=== PATIENT | male | born 1945 | race Caucasian/White ===

== ENCOUNTER 2021-01-04 16:59 | Inpatient (IN) | payer MEDICARE, OTHER ==
[~2021-01-04] VITALS: Ht 175.3 cm; Wt 90.3 kg
[2021-01-04 17:08] VITALS: BP 173/78
[2021-01-04] MEDS ORDERED: SIMVASTATIN80 MG PO (17:14)
[2021-01-04] MEDS ORDERED: COZAAR 25 MG TA25 M1 PO (17:14)
[2021-01-04 17:29] LABS: ABSOLUTE BASOPHILS 0.1 thou/uL (0.0-0.2); ABSOLUTE EOSINOPHILS 0.1 thou/uL (0.0-0.7); BASOPHILS 0.5 %; EOSINOPHILS 0.8 %; HEMATOCRIT 43.9 % (42.0-52.0); HEMOGLOBIN 14.3 gm/dL (14.0-18.0); LYMPHOCYTES 7.2 %; MCH 28.6 pg (26.0-34.0); MCHC 32.6 g/dL (28.0-37.0); MCV 87.7 fL (80.0-100.0); MONOCYTES 6.8 %; NUCLEATED RBCS 0 /100WBC; PLATELET COUNT* 253 thou/uL (150-400); POLYS 84.7 %; RDW-CV 14.2 % (10.5-14.5); WBC 14.1 thou/uL (4.0-11.0)
[2021-01-04 17:41] LABS: CALCIUM 9.1 mg/dL (8.5-10.1); CREATININE 0.9 mg/dL (0.6-1.3); POTASSIUM 3.7 mmol/L (3.5-5.1)
[2021-01-04 17:51] LABS: ALBUMIN 3.8 g/dL (3.4-5.0); TOTAL BILIRUBIN 0.4 mg/dL (<0.1-1.0); TOTAL PROTEIN 6.7 g/dL (6.4-8.2)
[2021-01-04 18:46] LABS: URINE BILIRUBIN NEGATIVE (Negative); URINE BLOOD NEGATIVE (Negative); URINE CLARITY CLEAR; URINE COLOR YELLOW; URINE GLUCOSE-RANDOM NEGATIVE (Negative); URINE KETONES TRACE (Negative); URINE LEUKOCYTES-REFLEX NEGATIVE (Negative); URINE NITRITE-REFLEX NEGATIVE (Negative); URINE PROTEIN NEGATIVE (Negative); URINE UROBILINOGEN 0.2 E.U./dl (0.2-1.0)
[2021-01-04 23:00] VITALS: BP 158/80
[2021-01-05 03:00] VITALS: BP 156/76
[2021-01-05 08:00] VITALS: BP 151/74
--- NOTE | 2021-01-05 10:47 | EKG ---
[place] [address] ELECTROCARDIOGRAM REPORT Name: NUBIA LOZOYA Room: [place] [address] ADM IN ..#: [id number] Admission: 01/04/21 Attend Phys: Ronak Manzanares Discharge: Date of : 47 Date of Service: 01/04/21 1726 Report #: [id number] THIS REPORT FOR: //name// [facility] ED Test Date: 2021-01-04 Test Time: 17:26:34 Pat Name: NUBIA LOZOYA Department: Room: 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 01/05/21 1047 1726 1726 Kali Esparza MD, [facility] /EPI
[2021-01-05 11:58] VITALS: BP 160/53
--- NOTE | 2021-01-05 12:05 | NUR ---
NEW ORDER TO DISCHARGE PT TO HOME. IV'S DC'D, MONITORS REMOVED AND ALL BELONGINGS WITH PT. SPOUSE HERE TO TRANSPORT PT TO HOME VIA CAR AT APPROX. 1230. PT VOICES NO CONCERNS AT THIS TIME.
[2021-01-05 12:18] VITALS: BP 157/72
== END 2021-01-05 12:19 | disposition home or self-care (01) | DRG 641 ==
LOC: M.ERS 16:59 → M.TBA-ER 18:39
PROVIDERS: Family Medicine; ADMIT Internal Medicine; ATTEND Internal Medicine
DX: E86.1 Hypovolemia (principal); Z20.822 Contact with and (suspected) exposure to COVID-19; I10 Essential (primary) hypertension; D72.829 Elevated white blood cell count, unspecified; E78.00 Pure hypercholesterolemia, unspecified; E78.5 Hyperlipidemia, unspecified; T67.5XXA Heat exhaustion, unspecified, initial encounter; S80.02XA Contusion of left knee, initial encounter; S80.01XA Contusion of right knee, initial encounter; W18.39XA Other fall on same level, initial encounter; Y93.89 Activity, other specified; Y92.89 Other specified places as the place of occurrence of the external cause; Y99.8 Other external cause status